=== PATIENT | male | born 1950 | race Caucasian/White ===

== ENCOUNTER → 2021-09-29 | Outpatient (CLI) | payer MEDICARE, OTHER ==
--- NOTE | 2021-09-29 08:59 | RAD ---
History: Reason: [id number] / Spl. Instructions: / History: AP, lateral, and oblique views of the left wrist were obtained. Comparison: none. No fracture. 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 There is collapse of the scaphoid bone w ith increase of the scapholunate interval suggestive slack wrist. Severe osteoporotic changes are als o identified around the wrist. Electronically signed by: Dima Thomas MD (09/29/2021 8:56 AM) [id number]
== END ==
LOC: RAD 07:57
PROVIDERS: ATTEND Nurse Practitioner Family
DX: S69.92XA Unspecified injury of left wrist, hand and finger(s), initial encounter (principal); M11.232 Other chondrocalcinosis, left wrist; M25.832 Other specified joint disorders, left wrist; W19.XXXA Unspecified fall, initial encounter; Y93.89 Activity, other specified; Y92.89 Other specified places as the place of occurrence of the external cause; Y99.8 Other external cause status
CPT/HCPCS: 73110